=== PATIENT | male | born 1945 | race Two or more races ===

== ENCOUNTER 2017-01-30 14:04 | Emergency (ER) | payer MEDICARE ==
[2017-01-30 14:13] VITALS: BP 149/85
--- NOTE | 2017-01-30 14:13 | EDM.PDOC ---
ED HPI GENERAL MEDICAL PROBLEM - General Chief Complaint: Skin Complaint Stated Complaint: [id number] BITE ON BACK OF KNEE COUGH Time Seen by Provider: 01/30/17 14:09 Source of Information: Reports: Patient, Old Records, RN, RN Notes Reviewed History Limitations: Reports: No Limitations - History of Present Illness INITIAL COMMENTS - FREE TEXT/NARRATIVE: [place] and got bit by an insect on the back of the right knee and the area is still red and irritated. Also he c/o a dry cough that he would like checked out while he is here. The cough is worse when he lays down at night, and began after he arrived here from [place] and also after he developed nasal allergy Sx's. Denies productive cough, fever, chills, N /V, edema, chest pain, or hemoptysis. Onset Date: 01/27/17 Duration: Constant Location: Reports: Lower Extremity, Right Severity: Mild Improves with: Reports: None Worsens with: Reports: None Associated Symptoms: Reports: No Other Symptoms - Related Data Allergies Allergy/AdvReac Type Severity Reaction Status Date / Time No Known Allergies Allergy Verified 01/30/17 14:11 Home Meds: Home Meds Lisinopril/Hydrochlorothiazide [Lisinopril-Hctz 20-25 mg Tab] 1 each PO DAILY [History] Modafinil [Provigil] 200 mg PO DAILY 01/30/17 [History] atorvaSTATin [Lipitor] 40 mg PO BEDTIME 01/30/17 [History] rOPINIRole [Requip] 2 mg PO BEDTIME 01/30/17 [History] Past Medical History Cardiovascular History: Reports: Blood Clots/VTE/DVT, High Cholesterol, Hypertension Social & Family History - Family History Family Medical History: Noncontributory - Tobacco Use Smoking Status *Q: Never Smoker Month Tobacco Last Used: 1984 Second Hand Smoke Exposure: No - Alcohol Use Days Per Week of Alcohol Use: 0 - Recreational Drug Use Recreational Drug Use: No - Living Situation & Occupation Living situation: Reports: Occupation: Retired ED ROS GENERAL - Review of Systems Review Of Systems: ROS reveals no pertinent complaints other than HPI. ED EXAM, GENERAL - Physical Exam Exam: See Below Exam Limited By: No Limitations General Appearance: Alert, WD/WN, No Apparent Distress Eye Exam: Bilateral Eye: Normal Inspection Ears: Normal External Exam, Hearing Grossly Normal Nose: No Blood, Nasal Drainage (clear with boggy non-erythematous but swollen nasal mucosa) Throat/Mouth: Normal Lips, Normal Teeth, Normal Gums, Normal Voice, No Airway Compromise, Other (clear postnasal drip) Head: Atraumatic, Normocephalic Neck: Normal Inspection, Supple, Non-Tender, Full Range of Motion. No: Lymphadenopathy (L), Lymphadenopathy (R) Respiratory/Chest: No Respiratory Distress, Lungs Clear, Normal Breath Sounds, No Accessory Muscle Use, Chest Non-Tender Cardiovascular: Regular Rate, Rhythm Back Exam: Normal Inspection Extremities: Normal Inspection, Normal Range of Motion, Non-Tender, Normal Capillary Refill, No Pedal Edema Neurological: Alert, Oriented, CN II-XII Intact, Normal Cognition, Normal Gait, No Motor/Sensory Deficits Psychiatric: Normal Affect, Normal Mood Skin Exam: Warm, Dry, Intact, Other (3.5cm diameter partially excoriation, no drainage, no bulls eye) Course - Vital Signs Last Recorded V/S: Last Vital Signs Temp 36.9 C 01/30/17 14:12 Pulse 74 01/30/17 14:12 Resp 18 01/30/17 14:12 BP 149/85 H 01/30/17 14:12 Pulse Ox 96 01/30/17 14:12 Departure - Departure Time of Disposition: 14:44 Disposition: Home, Self-Care 01 Condition: Good Clinical Impression: Insect bite of knee, right, infected Qualifiers: Encounter type: initial encounter Qualified Code(s): S80.261A - Insect bite ( nonvenomous), right knee, initial encounter Insect bite of right knee with local reaction Qualifiers: Encounter type: initial encounter Qualified Code(s): S80.261A - Insect bite ( nonvenomous), right knee, initial encounter Allergic rhinitis Qualifiers: Chronicity: acute Allergic rhinitis trigger: unspecified Allergic rhinitis seasonality: unspecified seasonality Qualified Code(s): J30.9 - Allergic rhinitis, unspecified - Discharge Information Instructions: Insect Bite, Nasal Allergies, [id number] Forms: ED Department Discharge Additional Instructions: Rx: Doxycycline 100mg Rx: Bactroban 2% ointment Use over the counter Zyrtec 10mg, one tablet every evening for nasal allergies and cough. Follow up in clinic if not improving in 3 to 4 days.
== END 2017-01-30 14:53 | disposition home or self-care (01) ==
LOC: DL.ED 14:04
DX: S80.261A Insect bite (nonvenomous), right knee, initial encounter (principal); L08.9 Local infection of the skin and subcutaneous tissue, unspecified; J30.9 Allergic rhinitis, unspecified; I10 Essential (primary) hypertension; E78.00 Pure hypercholesterolemia, unspecified; Z86.718 Personal history of other venous thrombosis and embolism; Z79.899 Other long term (current) drug therapy; W57.XXXA Bitten or stung by nonvenomous insect and other nonvenomous arthropods, initial encounter
CPT/HCPCS: 99281